=== PATIENT | female | born 1935 | race Caucasian/White ===

== ENCOUNTER 2016-03-09 13:46 | Inpatient (IN) | payer BC, MEDICAID ==
[~2016-03-09] VITALS: Ht 160 cm; Wt 72.1 kg
[2016-03-09] MEDS ORDERED: CEFTRIAXONE 1 GM VIAL ONE (16:00)
[2016-03-09] MEDS ORDERED: SODIUM CHLORIDE 0.9% 100 ML IV ONE (16:00)
[2016-03-09] MEDS ORDERED: SODIUM CHLORIDE 0.9% 500 ML IV ONE (16:51)
[2016-03-09] MEDS ORDERED: AZITHROMYCIN 500 MG VIAL IV ONE (16:51)
[2016-03-09] MEDS ORDERED: SODIUM CHLORIDE 0.9% 250 ML IV ONE (16:51)
[2016-03-09] MEDS ORDERED: OSELTAMIVIR 75 MG CAP ONE (16:51)
[2016-03-09] MEDS ORDERED: Furosemide 20 MG/2 ML VIAL IV SCH (17:00)
[2016-03-09] MEDS ORDERED: CEFTRIAXONE 1 GM in SODIUM CHLORIDE 0.9% 50 ML IV SCH (18:20)
[2016-03-09] MEDS ORDERED: GUAIFEN/DM 10 ML UDC PO PRN (18:20)
[2016-03-09] MEDS: OSELTAMIVIR 75 MG CAP PO SCH (18:49)
[2016-03-09] MEDS: AZITHROMYCIN 500 MG in SODIUM CHLORIDE 0.9% 250 ML IV SCH (18:50)
[2016-03-09 19:55] VITALS: RESP 18
[2016-03-09] MEDS: NEB-XOPENEX 0.63 MG/3 ML INH SCH ×2 (19:55→22:57)
[2016-03-09 20:35] VITALS: Ht 160 cm; Wt 72.1 kg
[2016-03-09 20:36] VITALS: BP_SYST 160; BP_SYST 180; RESP 18; TEMP 101.4
[2016-03-09] MEDS: PANTOPRAZOLE 40 MG TAB PO SCH (20:52)
[2016-03-09] MEDS: ACETAMINOPHEN 500 MG TAB PO PRN (20:52)
[2016-03-10] VITALS (7 sets, daily range): BP systolic 130–148; RESP 18–20; TEMP 98–100.2
[2016-03-10] MEDS: NEB-XOPENEX 0.63 MG/3 ML INH SCH ×4 (07:32→23:23)
[2016-03-10] MEDS: CEFTRIAXONE 1 GM in SODIUM CHLORIDE 0.9% 50 ML IV SCH (08:34)
[2016-03-10] MEDS: PANTOPRAZOLE 40 MG TAB PO SCH ×2 (08:34→21:52)
[2016-03-10] MEDS: OSELTAMIVIR 75 MG CAP PO SCH ×2 (08:35→21:52)
[2016-03-10] MEDS: AZITHROMYCIN 500 MG in SODIUM CHLORIDE 0.9% 250 ML IV SCH (11:07)
[2016-03-10] MEDS: ACETAMINOPHEN 500 MG TAB PO PRN (15:09)
[2016-03-10] MEDS ORDERED: METHYLPRED SOD SUCC 125 MG/2 ML VIAL IV ONE (18:35)
[2016-03-10] MEDS ORDERED: MISSING DOSE XX ONE ×2 (20:50)
[2016-03-11] MEDS: ACETAMINOPHEN 500 MG TAB PO PRN (02:37)
[2016-03-11 04:05] VITALS: BP_SYST 134; RESP 18; TEMP 98.3
[2016-03-11 07:31] VITALS: BP_SYST 146; RESP 20; TEMP 96.6
[2016-03-11] MEDS: NEB-XOPENEX 0.63 MG/3 ML INH SCH ×4 (07:54→23:00)
[2016-03-11] MEDS: CEFTRIAXONE 1 GM in SODIUM CHLORIDE 0.9% 50 ML IV SCH (08:33)
[2016-03-11] MEDS: PANTOPRAZOLE 40 MG TAB PO SCH ×2 (08:33→21:58)
[2016-03-11] MEDS: OSELTAMIVIR 75 MG CAP PO SCH ×2 (08:34→21:58)
[2016-03-11] MEDS: AZITHROMYCIN 500 MG in SODIUM CHLORIDE 0.9% 250 ML IV SCH (10:47)
[2016-03-11 11:51] VITALS: BP_SYST 136; RESP 20; TEMP 97.1
[2016-03-11] MEDS ORDERED: GLUCAGON 1 MG VIAL IM PRN (12:30)
[2016-03-11] MEDS ORDERED: DEXTROSE 50% SYRINGE 50 ML IV PRN (12:30)
[2016-03-11 16:33] VITALS: BP_SYST 148; RESP 20; TEMP 96.6
[2016-03-11 19:32] VITALS: BP_SYST 138; RESP 18; TEMP 97.9
[2016-03-11 22:55] VITALS: BP_SYST 140; RESP 18; TEMP 97.8
[2016-03-12] MEDS: ACETAMINOPHEN 500 MG TAB PO PRN ×2 (04:52→11:05)
[2016-03-12 04:54] VITALS: BP_SYST 138; RESP 18; TEMP 97.5
[2016-03-12] MEDS: NEB-XOPENEX 0.63 MG/3 ML INH SCH ×4 (06:45→23:01)
[2016-03-12] MEDS ORDERED: SALINE FLUSH 10 ML FLUSH PRN (07:00)
[2016-03-12 07:18] VITALS: BP_SYST 152; RESP 20; TEMP 97.4
[2016-03-12] MEDS: SODIUM CHLORIDE 0.9% FLUSH BAG 500 ML IV SCH (09:20)
[2016-03-12] MEDS: SALINE FLUSH 10 ML FLUSH SCH ×2 (09:20→22:30)
[2016-03-12] MEDS: CEFTRIAXONE 1 GM in SODIUM CHLORIDE 0.9% 50 ML IV SCH (09:20)
[2016-03-12] MEDS: OSELTAMIVIR 75 MG CAP PO SCH ×2 (09:21→22:31)
[2016-03-12] MEDS: PANTOPRAZOLE 40 MG TAB PO SCH ×2 (09:21→22:31)
[2016-03-12 10:30] VITALS: BP_SYST 150; RESP 18; TEMP 97.4
[2016-03-12] MEDS: AZITHROMYCIN 500 MG in SODIUM CHLORIDE 0.9% 250 ML IV SCH (11:04)
[2016-03-12 15:33] VITALS: BP_SYST 152; RESP 18; TEMP 97.7
[2016-03-12 20:15] VITALS: BP_SYST 148; RESP 20; TEMP 98.3
[2016-03-12 23:21] VITALS: BP_SYST 150; RESP 20; TEMP 97.8
[2016-03-13 03:17] VITALS: BP_SYST 160; RESP 20; TEMP 98.5
[2016-03-13] MEDS: SODIUM CHLORIDE 0.9% FLUSH BAG 500 ML IV SCH (04:07)
[2016-03-13] MEDS ORDERED: SODIUM CHLORIDE 0.9% FLUSH BAG 500 ML IV SCH (06:00)
[2016-03-13 07:44] VITALS: BP_SYST 170; RESP 20; TEMP 96.9
[2016-03-13] MEDS: NEB-XOPENEX 0.63 MG/3 ML INH SCH ×2 (07:47→14:25)
[2016-03-13] MEDS: SALINE FLUSH 10 ML FLUSH SCH (08:21)
[2016-03-13] MEDS: CEFTRIAXONE 1 GM in SODIUM CHLORIDE 0.9% 50 ML IV SCH (08:21)
[2016-03-13] MEDS: OSELTAMIVIR 75 MG CAP PO SCH (08:56)
[2016-03-13] MEDS: PANTOPRAZOLE 40 MG TAB PO SCH (08:56)
[2016-03-13] MEDS ORDERED: ASPIRIN 81 MG CHEW TAB PO SCH (09:15)
[2016-03-13] MEDS ORDERED: LISINOPRIL 20 MG TAB PO SCH (09:15)
[2016-03-13] MEDS ORDERED: DABIGATRAN 150 MG CAP PO SCH (09:15)
[2016-03-13] MEDS ORDERED: LEVOTHYROXINE 0.1 MG TAB PO SCH (09:19)
[2016-03-13] MEDS ORDERED: PREDNISONE 50 MG TAB PO SCH (09:20)
[2016-03-13 10:41] VITALS: BP_SYST 164; RESP 20; TEMP 97.7
[2016-03-13 14:40] VITALS: BP_SYST 172; RESP 20; TEMP 97.6
[2016-03-13 15:27] VITALS: BP_SYST 172; RESP 20; TEMP 97.6
[2016-03-13] MEDS ORDERED: LEVEMIR INSULIN SUBQ SCH (21:00)
[2016-03-13] MEDS ORDERED: DONEPEZIL 10 MG TABLET PO SCH (21:00)
== END 2016-03-13 17:08 | DRG 191 ==
LOC: ER 13:46 → EMR 16:45 → 4NT 18:48 → ENPENDDIS 03-10 18:32 → OBSVTOIN 03-10 18:32
PROVIDERS: ADMIT Internal Medicine; ATTEND Internal Medicine
DX: J44.0 Chronic obstructive pulmonary disease with (acute) lower respiratory infection (principal); N39.0 Urinary tract infection, site not specified; I11.0 Hypertensive heart disease with heart failure; I50.30 Unspecified diastolic (congestive) heart failure; J11.1 Influenza due to unidentified influenza virus with other respiratory manifestations; J44.1 Chronic obstructive pulmonary disease with (acute) exacerbation; J20.9 Acute bronchitis, unspecified; J45.909 Unspecified asthma, uncomplicated; E11.9 Type 2 diabetes mellitus without complications; R41.0 Disorientation, unspecified; I25.10 Atherosclerotic heart disease of native coronary artery without angina pectoris; E03.9 Hypothyroidism, unspecified; M79.7 Fibromyalgia; Z87.891 Personal history of nicotine dependence; Z86.73 Personal history of transient ischemic attack (TIA), and cerebral infarction without residual deficits
CPT/HCPCS: 36415; 71010; 80053; 81001; 82553; 82947; 83605; 83690; 83880; 84484; 84703; 85025; 87040; 87077; 87088; 87186; 87804; 93005; 94640; 94799; 96365; 96375